=== PATIENT | male | born 1985 | race Caucasian/White ===

== ENCOUNTER 2020-11-10 20:07 | Emergency (ER) | payer OTHER, SELFPAY ==
[2020-11-10 20:14] VITALS: BP 151/87; PULSE 112; RESP 14; TEMP 37.1; O2SAT 96
--- NOTE | 2020-11-10 20:59 | ED.MALEGU ---
HPI - Male Genitourinary General Chief complaint: Urogenital-Male Stated complaint: blood in urine, clots Time Seen by Provider: 11/10/20 20:30 Source: patient Mode of arrival: ambulatory Limitations: no limitations History of Present Illness HPI Narrative: Patient is a 35-year-old male who presents complaining of hematuria, dysuria and urinary frequency x1 day. He reports having blood clots in urine earlier this evening, with darkening urine at this time. He denies flank pain, penile discharge, exposure to STD, testicle pain or swelling. He denies taking [id number] medications prior to arrival. MD Complaint: other Related Data Allergies Allergy/AdvReac Type Severity Reaction Status Date / Time No Known Allergies Allergy Verified 11/10/20 21:42 Review of Systems Review of Systems: Narrative: CONSTITUTIONAL: Denies fever, chills, or sweats. EYES: Denies visual changes, redness, or discharge. ENT: Denies rhinorrhea, congestion, sore throat, or otalgia. CARDIOVASCULAR: Denies chest pain, palpitations, or edema. RESPIRATORY: Denies cough or dyspnea. GASTROINTESTINAL: Denies abdominal pain, nausea, vomiting, or diarrhea. GENITOURINARY: Reports dysuria and hematuria. SKIN: Denies rash or itching. MUSCULOSKELETAL: Denies back pain, joint pain, or myalgia. NEUROLOGIC: Denies headache, numbness, dizziness, or weakness. PSYCHIATRIC: Denies anxiety or depression. [facility] Past Medical History Medical History Elevated cholesterol Rheumatoid arthritis Sleep apnea Surgical History Surgical History No significant past surgical history Family History Family History (Updated 11/10/20 @ 21:30 by JOSE Venegas) Other No significant family history Social History Social History (Updated 11/10/20 @ 21:31 by JOSE Venegas) Smoking status: Current every day smoker Tobacco type: cigarettes Alcohol intake: current Alcohol use details: Occasional Substance use: never Living arrangements: with family Occupation/Education: occupation Comments At the time of signature, I have reviewed and agree with nursing past medical, surgical, social, and family history unless otherwise noted. Please see nursing chart for further information. There is no relevant family history pertinent to the presenting complaint. Exam Narrative: Exam Narrative: GENERAL: Well-appearing, well-nourished, and in no acute distress. HEAD: Normocephalic, atraumatic. EYES: No redness or drainage. ENT: Mucous membranes pink and moist. CHEST: No respiratory distress. HEART: Regular rate and rhythm. EXTREMITIES: Normal range of motion. No edema. SKIN: Warm, dry, no rash. NEURO: No focal deficits. Alert and oriented x3. Gait steady. PSYCH: Normal affect. No signs of depression or anxiety. Course Vital Signs Vital signs: Vital Signs Temperature 37.1 C 11/10/20 20:14 Pulse Rate 112 H 11/10/20 20:14 Respiratory Rate 14 11/10/20 20:14 Blood Pressure 151/87 H 11/10/20 20:14 Pulse Oximetry 96 11/10/20 20:14 Temperature 37.1 C 11/10/20 20:14 Pulse Rate 112 H 11/10/20 20:14 Respiratory Rate 14 11/10/20 20:14 Blood Pressure 151/87 H 11/10/20 20:14 Pulse Oximetry 96 11/10/20 20:14 Reviewed. Patient has been instructed to follow-up with his PCP regarding his blood pressure. MDM - Male Genitourinary MDM Narrative Medical decision making narrative: Patient appears to have a UTI. He denies risk of STDs. Patient is able to urinate at this time without difficulty. IV fluids continued. Discussed with Dr. Palomo and patient to be discharged to home on antibiotics with outpatient follow-up with urology. Differential Diagnosis Differential diagnosis: Likely urinary tract infection Lab Data Labs: Lab Results 11/10/20 Range/Units 21:13 Urine Color Yellow (Yellow) Urine
[2020-11-10 21:28] LABS: Add Urine Microscopic? YES; Appearance Urine Cloudy (Clear); Bilirubin Urine Negative (Negative); Blood Urine 3+ (Negative); Color Urine Yellow (Yellow); Glucose Urine UA Negative (Negative); Ketones Urine Negative (Negative); Leukocyte Esterase Ur 2+ LEU/UL (Negative); Mucus Urine Moderate /lpf; Nitrate Urine Negative (Negative); Protein Urine 2+ mg/dL (Negative); RBC Urine >75 /hpf (0-2); Specific Grav Ur 1.029 (1.001-1.035); Squamous Epithelial Cell Urine Occasional /hpf (Few); Urobilinogen Urine Negative mg/dL (<2.0); WBC Clumps Urine Present /HPF; WBC Urine >75 /hpf
[2020-11-10] MEDS: SODIUM CHLORIDE 0.9% IV 1,000 ML 999 ML IV CONT (22:15)
== END 2020-11-10 23:28 | disposition home or self-care (01) ==
PROVIDERS: Emergency Provider Nurse Practitioner
DX: N39.0 Urinary tract infection, site not specified (principal); M06.9 Rheumatoid arthritis, unspecified; G47.30 Sleep apnea, unspecified; F17.210 Nicotine dependence, cigarettes, uncomplicated
CPT/HCPCS: 81001; 87077; 87086; 87088; 87186; 96360; 99283; J7030

== ENCOUNTER 2022-02-23 09:17 | Outpatient (CLI) | payer OTHER, SELFPAY ==
[2022-02-23 09:39] LABS: Hematocrit 43.5 % (42.0-52.0); Hemoglobin 14.6 g/dL (14.0-18.0); Mean Corpuscular HGB Conc 33.6 g/dl (32-36); Mean Corpuscular Volume 98.4 fl (80-100); Mean Platelet Volume 9.6 fl (7.4-10.4); Platelet Count Result 244 k/mm3 (150-375); Red Blood Count 4.42 M/mm3 (4.6-6.20); Red Cell Distribution Width 12.6 % (11.5-14.5); White Blood Count 6.4 K/mm3 (4.5-10.0)
[2022-02-23 09:48] LABS: Alanine Aminotransferase 71 U/L (4-50); Albumin Level 4.6 g/dL (3.5-5.1); Alkaline Phosphatase 42 U/L (38-126); Anion Gap 6 mmol/L (8-16); Aspartate Amino Transferase 35 U/L (17-59); Bilirubin,Total 0.6 mg/dL (0.2-1.3); Blood Urea Nitrogen 13 mg/dL (9-20); Calcium 8.9 mg/dL (8.4-10.2); Carbon Dioxide 24 mmol/L (22-30); Chloride 109 mmol/L (98-107); Cholesterol 231 mg/dL (0-200); Estimated Glomerular Filt Rate > 60; Glucose 99 mg/dL (65-110); HDL Direct 47 mg/dL; Potassium 4.1 mmol/L (3.4-5.0); Sodium 139 mmol/L (137-145); Triglycerides 146 mg/dL (<150)
[2022-02-23 09:59] LABS: LDL Cholesterol Direct 139 mg/dL
[2022-02-23 10:19] LABS: Thyroid Stimulating Hormone 0.832 uIU/mL (0.465-4.680)
[2022-02-23 10:54] LABS: Folic Acid 8.8 ng/mL (2.76->20)
[2022-02-23 10:57] LABS: Hepatitis B Surface Antigen Negative (Negative)
[2022-02-23 11:03] LABS: HAV RESULT Negative (Negative); Hepatitis B Core IgM Result Negative (Negative)
[2022-02-23 11:15] LABS: Hepatitis C Virus Antibody Negative (Negative)
[2022-02-23 12:22] LABS: Rapid Plasma Reagin Non-Reactive (NonReactive)
[2022-02-26 11:28] LABS: HIV 1 2 Ag Ab 4th Gen w Rflxs Non-reactive (Non-reactive)
[2022-02-28 14:27] LABS: Testosterone Free 105.8 pg/mL (35.0-155.0); Testosterone Total 470 ng/dL (250-1100)
[2022-03-01 21:10] LABS: HSV 1 IgM Screen Positive (Negative); HSV 2 IgM Screen Negative (Negative)
[2022-03-01 21:43] LABS: HSV 1 IgM Titer 1:20 (<1:20)
== END 2022-02-23 09:18 | disposition home or self-care (01) ==
PROVIDERS: PCP Physician Assistant; Visit Provider Physician Assistant
DX: R53.83 Other fatigue (principal); Z11.3 Encounter for screening for infections with a predominantly sexual mode of transmission; Z00.00 Encounter for general adult medical examination without abnormal findings
CPT/HCPCS: 36415; 80053; 80061; 80074; 82607; 82746; 84402; 84403; 84443; 85027; 86592; 86695; 86696; 87389; 87491; 87591

== ENCOUNTER 2022-03-09 07:04 | Outpatient (CLI) | payer OTHER, SELFPAY ==
--- NOTE | ~2022-03-09 | XR_ITS ---
EXAMINATION: XR barium swallow DATE: 03/09/2022 07:59 INDICATION: Dysphagia TECHNIQUE: The patient drank thick barium, gas-producing crystals, and thin barium. Fluoroscopy of th e hypopharynx and esophagus was performed. Fluoroscopy exposure time was 1.4 minutes. The DAP for thi s procedure was 9.4 Gycm2. COMPARISON: None. FINDINGS: There is no mass or stricture of the esophagus. Esophageal motility is normal. There is no hiatal hernia. There was no gastroesophageal reflux with provocative maneuvers. IMPRESSION: 1. Unremarkable esophagram. Reviewed, dictated and finalized at location A. IMPRESSION: 1. Unremarkable esophagram.
== END 2022-03-09 07:05 | disposition home or self-care (01) ==
PROVIDERS: PCP Physician Assistant; Visit Provider Physician Assistant
DX: R13.19 Other dysphagia (principal)
CPT/HCPCS: 74220

== ENCOUNTER 2022-03-20 13:29 | Outpatient (CLI) | payer OTHER, SELFPAY ==
[2022-03-20 13:59] LABS: Basophils Percent Auto 0.6 % (0.2-1.2); Eosinophils Absolute Auto 0.1 K/mm3 (0-0.3); Hematocrit 42.6 % (42.0-52.0); Hemoglobin 14.2 g/dL (14.0-18.0); Immature Granulocyte Absolute 0.05 K/mm3 (0.00-0.031); Immature Granulocyte Percent A 0.7 % (0-0.5); Lymphocytes Absolute Auto 2.14 K/mm3 (0.9-3.2); Lymphocytes Percent Auto 31.3 % (18.3-44.2); Mean Corpuscular HGB Conc 33.3 g/dl (32-36); Mean Corpuscular Hemoglobin 33.1 pg (26-34); Mean Corpuscular Volume 99.3 fl (80-100); Mean Platelet Volume 9.8 fl (7.4-10.4); Monocytes Absolute Auto 0.6 K/mm3 (0.1-0.6); Monocytes Percent Auto 8.8 % (2.6-8.5); Neutrophils Absolute Auto 3.9 K/mm3 (1.3-6.7); Neutrophils Percent Auto 56.6 % (45.5-73.1); Platelet Count Result 230 k/mm3 (150-375); Red Blood Count 4.29 M/mm3 (4.6-6.20); Red Cell Distribution Width 12.8 % (11.5-14.5); White Blood Count 6.8 K/mm3 (4.5-10.0)
[2022-03-20 14:17] LABS: Alanine Aminotransferase 45 U/L (6-50); Albumin Level 4.5 g/dL (3.5-5.1); Alkaline Phosphatase 46 U/L (38-126); Anion Gap 7 mmol/L (8-16); Aspartate Amino Transferase 27 U/L (17-59); Bilirubin,Total 0.2 mg/dL (0.2-1.3); Blood Urea Nitrogen 14 mg/dL (9-20); Carbon Dioxide 28 mmol/L (22-30); Chloride 107 mmol/L (98-107); Estimated Glomerular Filt Rate > 60; Glucose 97 mg/dL (65-110); Potassium 4.4 mmol/L (3.4-5.0); Sodium 142 mmol/L (137-145)
== END 2022-03-20 13:30 | disposition home or self-care (01) ==
LOC: ANHLAB 13:32
PROVIDERS: PCP Physician Assistant
DX: Z79.899 Other long term (current) drug therapy (principal)
CPT/HCPCS: 36415; 80053; 85025

== ENCOUNTER 2022-04-12 01:46 | Day surgery (SDC) | payer OTHER, SELFPAY ==
[2022-03-27 13:03] VITALS: BMI 33.8
--- NOTE | 2022-04-11 15:39 | WPDANESEPPF ---
Anes - Initial Pre Proc Eval Procedure: Operation Date: 04/12/22 08:45 Proposed Procedures p Esophagogastroduodenoscopy - Brent Luis MD Date/Time: 04/11/22 15:39 Surgeon: Brent Luis MD Pre Op Diagnosis: dysphagia Patient Data Age: 36 Gender: M Height: 1.73 m Weight: 101 kg Allergies Allergy/AdvReac Type Severity Reaction Status Date / Time No Known Allergies Allergy Verified 04/12/22 07:38 Home Medications Medication Instructions Recorded Confirmed Type folic acid 1 mg tablet 1 mg PO DAILY 02/22/22 04/12/22 History methotrexate sodium 2.5 mg tablet 25 mg PO WEEKLY 02/22/22 04/12/22 History Patient hx anesthesia problems: none Family hx anesthesia problems: none Results Review: All pre-operative results and documents have been reviewed as part of the pre-operative evaluation. [facility] Past Medical History Medical History (Updated 04/11/22 @ 15:39 by Paul Myers DO) Elevated cholesterol Hyperlipidemia Rheumatoid arthritis Sleep apnea Surgical History Surgical History No significant past surgical history Family History Family History Other No significant family history Social History Social History Smoking packs per day: 1 Smoking cigarettes per day: 20.0 Years smoked: 20 Smoking pack-years: 20.00 Smoking status: Current some day smoker Tobacco type: cigarettes Alcohol intake: current Alcohol use details: Occasional Substance use: never Substance use type: does not use Living arrangements: alone Spiritual care concerns: No Anes - Eval Final PreProcedure Day of Procedure 04/11/22 15:39 Patient weight: obese Heart: regular rate and rhythm Lungs: clear to auscultation Airway: Mallampati scale class III Neurological: alert and oriented Last oral intake: >/= 8 hours ASA classification: III Emergent: no Anesthetic plan: proceed Anesthesia type and monitoring: general GIVS and standard monitoring Results Review: All pre-operative results and documents have been reviewed as part of the pre-operative evaluation. Informed Consent: The patient's anesthetic plan and its attendant risks and benefits were discussed with the patient/family/POA. Questions were solicited and answers provided to the satisfaction of the patient/family/POA.
[2022-04-12 07:39] VITALS: BP 114/68; PULSE 49; RESP 18; TEMP 35.6; O2SAT 99
[2022-04-12] MEDS: LACTATED RINGERS 1,000 ML 150 ML IV CONT (07:42)
--- NOTE | 2022-04-12 07:55 | P.CONGI_ITS ---
Assessment and Plan Assessment and plan (1) Dysphagia: Code(s): R13.10 - Dysphagia, unspecified Status: Acute Assessment and Plan: Patient with difficulty swallowing solid foods for the last several years. S ymptoms are consistent with stoppage on narrowing. Plan is for EGD to assess more thoroughly. Possibly to dilate the esophagus. GE reflux is a consideration. Further recommendations will be given after endoscopy. (2) Rheumatoid arthritis: Code(s): M06.9 - Rheumatoid arthritis, unspecified Status: Acute GI Consult Note Consult date/time: 04/12/22 07:55 Reason for consult: dysphagia HPI: Brian Almeida is a 36 year old male presents for EGD because of complaints of difficulty swallowing. Patient reports over last several years that when eating solid foods it will catch in the mid substernal portion of the chest. It often takes several minutes to pass distally. Patient denies any heartburn. He has had no vomiting. No weight loss. His family history is noncontributory as he it was adopted. Past medical history is significant for rheumatoid arthritis for which she takes methotrexate and folic acid. Review of Systems Review of Systems: Review of systems noncontributory. [facility] Past Medical History Medical History (Updated 04/12/22 @ 07:57 by Brent Luis MD) Elevated cholesterol Hyperlipidemia Rheumatoid arthritis Sleep apnea Surgical History Surgical History No significant past surgical history Family History Family History Other No significant family history Social History Social History Smoking packs per day: 1 Smoking cigarettes per day: 20.0 Years smoked: 20 Smoking pack-years: 20.00 Smoking status: Current some day smoker Tobacco type: cigarettes Alcohol intake: current Alcohol use details: Occasional Substance use: never Substance use type: does not use Living arrangements: alone Spiritual care concerns: No Meds Home Medications and Allergies Home Medications Medication Instructions Recorded Confirmed Type folic acid 1 mg tablet 1 mg PO DAILY 02/22/22 04/12/22 History methotrexate sodium 2.5 mg tablet 25 mg PO WEEKLY 02/22/22 04/12/22 History Allergies Allergy/AdvReac Type Severity Reaction Status Date / Time No Known Allergies Allergy Verified 04/12/22 07:38 Vital Signs Vital Signs - 24 hr 04/12/22 07:39 Temperature 96.1 F L Pulse Rate 49 L Respiratory Rate 18 Blood Pressure 114/68 Pulse Oximetry 99 Oxygen Delivery Room Air Exam Narrative: Physical exam reveals patient to be alert. Vital signs stable. HEENT exam is unremarkable. Patient is anicteric. Lungs are clear to auscultation and percussion. Heart is without murmur or extra sounds. Abdominal exam bowel sounds present soft nontender with no organomegaly. Digital external rectal exam is normal.
[2022-04-12 09:12] VITALS: BP 99/57; PULSE 48; RESP 19; O2SAT 96
[2022-04-12 09:22] VITALS: BP 100/58; PULSE 48; RESP 19; O2SAT 97
[2022-04-12 09:32] VITALS: BP 105/62; PULSE 48; RESP 19; O2SAT 98
== END 2022-04-12 09:39 | disposition home or self-care (01) ==
PROVIDERS: PCP Physician Assistant; Visit Provider Internal Medicine Gastroenterology
PROC: 0DJ08ZZ Inspection of Upper Intestinal Tract, Via Natural or Artificial Opening Endoscopic (ICD-10-PCS; CPT 43235; principal; 2022-04-12 08:45)
DX: R13.10 Dysphagia, unspecified (principal); M06.9 Rheumatoid arthritis, unspecified; E78.5 Hyperlipidemia, unspecified; G47.30 Sleep apnea, unspecified; F17.210 Nicotine dependence, cigarettes, uncomplicated; E66.9 Obesity, unspecified; Z68.34 Body mass index [BMI] 34.0-34.9, adult
CPT/HCPCS: 43450; 43235; J2704; J7120

== ENCOUNTER 2022-06-12 12:05 | Outpatient (CLI) | payer OTHER, SELFPAY ==
[2022-06-12 12:29] LABS: Basophils Percent Auto 0.3 % (0.2-1.2); Eosinophils Absolute Auto 0.2 K/mm3 (0-0.3); Eosinophils Percent Auto 2.8 % (0-4.4); Hematocrit 41.9 % (42.0-52.0); Hemoglobin 14.2 g/dL (14.0-18.0); Immature Granulocyte Absolute 0.03 K/mm3 (0.00-0.031); Immature Granulocyte Percent A 0.4 % (0-0.5); Lymphocytes Absolute Auto 2.42 K/mm3 (0.9-3.2); Lymphocytes Percent Auto 32.4 % (18.3-44.2); Mean Corpuscular HGB Conc 33.9 g/dl (32-36); Mean Corpuscular Hemoglobin 33.1 pg (26-34); Mean Corpuscular Volume 97.7 fl (80-100); Mean Platelet Volume 9.5 fl (7.4-10.4); Monocytes Absolute Auto 0.5 K/mm3 (0.1-0.6); Monocytes Percent Auto 6.2 % (2.6-8.5); Neutrophils Absolute Auto 4.3 K/mm3 (1.3-6.7); Neutrophils Percent Auto 57.9 % (45.5-73.1); Platelet Count Result 239 k/mm3 (150-375); Red Blood Count 4.29 M/mm3 (4.6-6.20); Red Cell Distribution Width 12.7 % (11.5-14.5); White Blood Count 7.5 K/mm3 (4.5-10.0)
[2022-06-12 12:49] LABS: Alanine Aminotransferase 85 U/L (6-50); Albumin Level 4.6 g/dL (3.5-5.1); Alkaline Phosphatase 50 U/L (38-126); Anion Gap 11 mmol/L (8-16); Aspartate Amino Transferase 33 U/L (17-59); Bilirubin,Total 0.5 mg/dL (0.2-1.3); Blood Urea Nitrogen 17 mg/dL (9-20); Carbon Dioxide 23 mmol/L (22-30); Chloride 105 mmol/L (98-107); Estimated Glomerular Filt Rate > 60; Glucose 109 mg/dL (65-110); Potassium 4.2 mmol/L (3.4-5.0); Sodium 139 mmol/L (137-145)
== END 2022-06-12 12:06 | disposition home or self-care (01) ==
PROVIDERS: PCP Physician Assistant
DX: Z79.899 Other long term (current) drug therapy (principal)
CPT/HCPCS: 36415; 80053; 85025

== ENCOUNTER 2022-07-26 16:44 | Outpatient (CLI) | payer OTHER, SELFPAY ==
[2022-07-26 17:02] LABS: Basophils Percent Auto 0.3 % (0.2-1.2); Eosinophils Absolute Auto 0.1 K/mm3 (0-0.3); Eosinophils Percent Auto 1.4 % (0-4.4); Hematocrit 41.2 % (42.0-52.0); Hemoglobin 14.4 g/dL (14.0-18.0); Immature Granulocyte Absolute 0.04 K/mm3 (0.00-0.031); Immature Granulocyte Percent A 0.6 % (0-0.5); Lymphocytes Absolute Auto 2.07 K/mm3 (0.9-3.2); Mean Corpuscular Hemoglobin 33.2 pg (26-34); Mean Corpuscular Volume 94.9 fl (80-100); Mean Platelet Volume 9.6 fl (7.4-10.4); Monocytes Absolute Auto 0.6 K/mm3 (0.1-0.6); Monocytes Percent Auto 7.7 % (2.6-8.5); Neutrophils Absolute Auto 4.4 K/mm3 (1.3-6.7); Platelet Count Result 221 k/mm3 (150-375); Red Blood Count 4.34 M/mm3 (4.6-6.20); Red Cell Distribution Width 12.1 % (11.5-14.5); White Blood Count 7.2 K/mm3 (4.5-10.0)
[2022-07-26 17:12] LABS: Alanine Aminotransferase 71 U/L (6-50); Albumin Level 4.7 g/dL (3.5-5.1); Alkaline Phosphatase 41 U/L (38-126); Anion Gap 12 mmol/L (8-16); Aspartate Amino Transferase 30 U/L (17-59); Bilirubin,Total 0.3 mg/dL (0.2-1.3); Blood Urea Nitrogen 17 mg/dL (9-20); Calcium 9.3 mg/dL (8.4-10.2); Carbon Dioxide 26 mmol/L (22-30); Chloride 102 mmol/L (98-107); Estimated Glomerular Filt Rate > 60; Glucose 103 mg/dL (65-110); Potassium 3.9 mmol/L (3.4-5.0); Sodium 140 mmol/L (137-145)
== END 2022-07-26 16:45 | disposition home or self-care (01) ==
LOC: ANHLAB 16:48
PROVIDERS: PCP Physician Assistant
DX: Z79.899 Other long term (current) drug therapy (principal)
CPT/HCPCS: 36415; 80053; 85025

== ENCOUNTER 2022-10-08 14:06 | Outpatient (CLI) | payer OTHER, SELFPAY ==
[2022-10-08 15:07] LABS: Alanine Aminotransferase 114 U/L (6-50); Albumin Level 4.6 g/dL (3.5-5.1); Alkaline Phosphatase 40 U/L (38-126); Anion Gap 9 mmol/L (8-16); Aspartate Amino Transferase 49 U/L (17-59); Bilirubin,Total 0.5 mg/dL (0.2-1.3); Blood Urea Nitrogen 17 mg/dL (9-20); Calcium 8.9 mg/dL (8.4-10.2); Carbon Dioxide 26 mmol/L (22-30); Chloride 106 mmol/L (98-107); Estimated Glomerular Filt Rate > 60; Glucose 128 mg/dL (65-110); Potassium 3.7 mmol/L (3.4-5.0); Sodium 141 mmol/L (137-145)
== END 2022-10-08 14:07 | disposition home or self-care (01) ==
PROVIDERS: PCP Physician Assistant
DX: R74.8 Abnormal levels of other serum enzymes (principal); Z51.81 Encounter for therapeutic drug level monitoring; Z79.899 Other long term (current) drug therapy
CPT/HCPCS: 36415; 80053

== ENCOUNTER 2022-12-04 08:52 | Outpatient (CLI) | payer OTHER, SELFPAY ==
--- NOTE | 2022-12-24 11:32 | WPDSLEEPSTUD ---
Sleep Study Date of Study: 12/04/22 Ordering Provider: Tatum Ritter MD Interpreting Physician: Tatum Ritter MD Sleep Study Type: CPAP Titration Height: 1.75 m Weight: 120.202 kg Body Mass Index: 39.1 Neck Circumference (inches): 17.5 [place]: 16 Reason for Sleep Study Hypersomnolence Sleep History Brian Almeida is a 37-year-old man with a history of obstructive sleep apnea syndrome diagnosed in 2013, currently using the same device, auto PAP 16-20 cm. He can not sleep without it. He is actually afraid he will if he does not use it during sleep. He has had frightening episodes of waking, not breathing, perhaps having laryngospasm without using PAP.? He says that he was almost blacked out, had fading consciousness, jumped out of bed without being able to open his airway, finally able to gasp for breath. On another occasion, he woke during the night, was unable to move, was trying to grasp and pinch at his thighs to release himself from a feeling of paralysis. His normal bedtime is 10:00 p.m..? He can fall asleep immediately most nights.? If he has any difficulty falling asleep, he may watch [employer] on his telephone, wakes at 6:30 a.m. using an alarm.? He has not felt refreshed on waking for years.? He has dreams although he does not frequently have dream recall.? He has nocturia 3-4 nights out of the week.? He never has more than 1 episode of nocturia per night.? He drinks little caffeine, tea at lunch.? Very little soda.? He does not have any uncomfortable feelings in his legs before sleep and he does not kick at night. ? He has a deviated septum, can not breathe well at all out of the left side and has a large turbinates on the right side.?He has some problems with seasonal nasal irritation.? He has gained a significant amount of weight in the last year or more, now 259 lb. This is about 30 lb since Aug 2021. Now, he does not exercise. He has a 10 minute commute to work, does not have time to fall asleep on the short drive. He has had automatic driving, arriving at a destination not recalling the drive.? He does not have vivid dreams on waking of falling asleep, and in general does not feel paralyzed on waking or falling asleep. His normal work schedule is 7:00 a.m. to 5:30 p.m..? He comes home and takes a nap. Sometimes after an evening nap, he is too tired to do anything else. He says that he is always sleepy.? He always uses CPAP with naps. [facility] Past Medical History Medical History Elevated cholesterol Hyperlipidemia Rheumatoid arthritis Sleep apnea Surgical History Surgical History No significant past surgical history Family History Family History Other No significant family history Social History Social History (Updated 10/31/22 @ 17:57 by Tatum Ritter MD) Social History: States that he has not smoked since May 2022. See HPI. Smoking packs per day: 1 Smoking cigarettes per day: 20.0 Years smoked: 20 Smoking pack-years: 20.00 Smoking status: Former smoker Tobacco type: cigarettes Alcohol intake: current Alcohol use details: Occasional Substance use: never Substance use type: does not use Lack of Transportation: No Lack of Food: Sometimes True Current Housing: Decline to Answer Concerned About Future Housing: YES Difficulty Paying Gas/Electric Bills: Decline to Answer Difficulty Paying for Meds: YES Currently Unemployed: No Education: Associate Degree Difficulty w/ Childcare or Family Care: YES Living arrangements: alone Additional living arrangements comments: On this visit 10/31/2021, lives with fiivan?, expecting a baby. 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
[2022-12-24 12:32] VITALS: BMI 39.1
--- NOTE | 2023-06-04 14:06 | SLEEP ---
pt unable to complete call try back 30 d
== END 2022-12-05 07:04 | disposition home or self-care (01) ==
LOC: ANHCSM 08:55
PROVIDERS: PCP Physician Assistant; Visit Provider Internal Medicine Critical Care Medicine
DX: G47.33 Obstructive sleep apnea (adult) (pediatric) (principal); E78.5 Hyperlipidemia, unspecified; M06.9 Rheumatoid arthritis, unspecified; Z87.891 Personal history of nicotine dependence
CPT/HCPCS: 95811

== ENCOUNTER 2023-04-19 10:28 | Outpatient (CLI) | payer OTHER, SELFPAY ==
[2023-04-19 10:57] LABS: Basophils Percent Auto 0.4 % (0.2-1.2); Eosinophils Absolute Auto 0.2 K/mm3 (0-0.3); Eosinophils Percent Auto 2.7 % (0-4.4); Hematocrit 42.8 % (42.0-52.0); Hemoglobin 14.6 g/dL (14.0-18.0); Immature Granulocyte Absolute 0.04 K/mm3 (0.00-0.031); Immature Granulocyte Percent A 0.7 % (0-0.5); Lymphocytes Absolute Auto 1.78 K/mm3 (0.9-3.2); Lymphocytes Percent Auto 31.8 % (18.3-44.2); Mean Corpuscular HGB Conc 34.1 g/dl (32-36); Mean Corpuscular Volume 90.9 fl (80-100); Mean Platelet Volume 9.5 fl (7.4-10.4); Monocytes Absolute Auto 0.5 K/mm3 (0.1-0.6); Monocytes Percent Auto 9.7 % (2.6-8.5); Neutrophils Absolute Auto 3.1 K/mm3 (1.3-6.7); Neutrophils Percent Auto 54.7 % (45.5-73.1); Platelet Count Result 216 k/mm3 (150-375); Red Blood Count 4.71 M/mm3 (4.6-6.20); Red Cell Distribution Width 11.9 % (11.5-14.5); White Blood Count 5.6 K/mm3 (4.5-10.0)
[2023-04-19 11:10] LABS: Alanine Aminotransferase 189 U/L (6-50); Albumin Level 4.6 g/dL (3.5-5.1); Alkaline Phosphatase 41 U/L (38-126); Anion Gap 6 mmol/L (8-16); Aspartate Amino Transferase 92 U/L (17-59); Bilirubin,Total 0.7 mg/dL (0.2-1.3); Blood Urea Nitrogen 12 mg/dL (9-20); Calcium 9.3 mg/dL (8.4-10.2); Carbon Dioxide 30 mmol/L (22-30); Chloride 106 mmol/L (98-107); Estimated Glomerular Filt Rate > 60; Glucose 96 mg/dL (65-110); Potassium 4.6 mmol/L (3.4-5.0); Sodium 142 mmol/L (137-145)
== END 2023-04-19 10:29 | disposition home or self-care (01) ==
PROVIDERS: PCP Physician Assistant; Visit Provider Internal Medicine Rheumatology
DX: Z79.899 Other long term (current) drug therapy (principal)
CPT/HCPCS: 36415; 80053; 85025

== ENCOUNTER 2023-09-10 14:41 | Outpatient (CLI) | payer OTHER, SELFPAY ==
--- NOTE | ~2023-09-10 | XR_ITS ---
Left Knee Technique: AP, lateral, and sunrise views were obtained. Clinical History: Pain Findings: No fracture or dislocation is seen. Osseous alignment is anatomic. Joint spaces are preserv ed without degenerative or erosive change. Soft tissues are unremarkable. No joint effusion is seen. Impression: Unremarkable left knee radiographs. Reviewed, dictated and finalized at location . ESTATE LEASING MANAGER Impression: Unremarkable left knee radiographs.
== END 2023-09-10 14:42 | disposition home or self-care (01) ==
LOC: ANHIMG 14:49
PROVIDERS: PCP Physician Assistant; Visit Provider Orthopaedic Surgery
DX: M25.562 Pain in left knee (principal)
CPT/HCPCS: 73564

== ENCOUNTER 2023-10-25 16:24 | Outpatient (CLI) | payer OTHER, SELFPAY ==
--- NOTE | ~2023-10-25 | MR_ITS ---
EXAMINATION: MR knee LT wo con DATE: 10/25/2023 17:25 INDICATION: Medial meniscal tear post injury while squatting with palpable and audible tear present ing with one month of medial left knee pain. TECHNIQUE: Magnetic resonance imaging (MRI) of the left knee was performed without intravenous contra st. Sequences included coronal PD-weighted FSE, coronal PD-weighted FS FSE, sagittal T2-weighted FSE , sagittal PD-weighted FS FSE and axial PD weighted fat saturated FSE. COMPARISON: None. FINDINGS: Medial compartment: There is a longitudinal horizontal tear extending to the inferior articular surface of the posterior horn of the medial meniscus. Articular cartilage is normal. Lateral compartment: Lateral meniscus is normal. Articular cartilage is normal. Patellofemoral compartment: There is a deep chondral fissure involving greater than 50% the cartilage thickness but without under lying degenerative subchondral changes at the medial patellar facet. Remaining cartilage in the rogers lofemoral compartment is normal. Ligaments and tendons: Anterior and posterior cruciate ligaments are normal. The medial collateral ligament and fibular meri ateral ligament complex are normal. The extensor mechanism is normal. The visualized medial and later al hamstring tendons as well as the iliotibial band are normal. Fluid: Physiologic amount of fluid in the joint space. No loose osteochondral bodies identified. Osseous/other: Normal marrow signal. No fracture or pathologic marrow replacing process. IMPRESSION: 1. Large horizontal tear at the posterior horn of the medial meniscus. 2. Deep chondral fissuring at the medial patellar facet. Remaining articular cartilage at the left kn ee is normal. Reviewed, dictated and finalized at location A. EAR ENGINEER IMPRESSION: 1. Large horizontal tear at the posterior horn of the medial meniscus. 2. Deep chondral fissuring at the medial patellar facet. Remaining articular ca rtilage at the left knee is normal.
== END 2023-10-25 16:25 | disposition home or self-care (01) ==
PROVIDERS: PCP Physician Assistant; Visit Provider Orthopaedic Surgery
DX: S83.242A Other tear of medial meniscus, current injury, left knee, initial encounter (principal); M22.42 Chondromalacia patellae, left knee; X58.XXXA Exposure to other specified factors, initial encounter
CPT/HCPCS: 73721

== ENCOUNTER 2023-11-19 12:49 | Outpatient (CLI) | payer OTHER, SELFPAY ==
[2023-11-19 13:27] LABS: Partial Thromboplastin Time 25.6 SECONDS (22.3-36.8); Prothrombin Time 13.5 Seconds (11.1-14.7)
[2023-11-19 13:31] LABS: Anion Gap 12 mmol/L (8-16); Blood Urea Nitrogen 19 mg/dL (9-20); Calcium 9.6 mg/dL (8.4-10.2); Carbon Dioxide 24 mmol/L (22-30); Chloride 105 mmol/L (98-107); Estimated Glomerular Filt Rate > 60; Glucose 116 mg/dL (65-110); Potassium 3.9 mmol/L (3.4-5.0); Sodium 141 mmol/L (137-145)
== END 2023-11-19 12:50 | disposition home or self-care (01) ==
LOC: ANHLAB 12:51
PROVIDERS: PCP Physician Assistant; Visit Provider Anesthesiology
DX: Z01.818 Encounter for other preprocedural examination (principal); K76.0 Fatty (change of) liver, not elsewhere classified
CPT/HCPCS: 36415; 80048; 85610; 85730

== ENCOUNTER 2023-11-28 00:52 | Day surgery (SDC) | payer OTHER, SELFPAY ==
[2023-11-19 10:12] VITALS: BMI 40.6
--- NOTE | 2023-11-19 10:19 | PC.NURSE ---
Report to the Outpatient Waiting Room, entrance under the green pavilion located off [facility], at time 11:30 on date 11/28/23. Planned Procedure Time: 1:30. Time changes happen often and if your time is changed the preop area will call you the afternoon before. - You and your visitor will be asked to self-screen and do not enter if you have any COVID symptoms. - A mask is optional within the hospital at this time. Patients may have clear liquids (water, carbonated beverages, clear teas, apple juice) until 3 hours prior to surgery (10:30) with a maximum of 20 ounces. - No food from midnight until time of surgery Take the following medications with a SIP of water the morning of surgery: NONE DO NOT STOP ANY OF YOUR OTHER PRESCRIPTION MEDICATIONS PRIOR TO SURGERY ?EXCEPT THE FOLLOWING Medications to discontinue per physician: ASPIRIN Date to take last dose: 11/20/23 Please no make-up, nail albanian, hairspray, perfume, deodorant, or body powder the day of surgery. No jewelry (including any body piercings) or valuables the day of surgery, leave them at home. Please take a shower or bath the night before, or the morning of, surgery with an antibacterial soap. Wear comfortable, loose fitting clothing. - Jewelry must be removed prior to entering the operating room. Rings and piercings that are not removed may be cut off. - The hospital will not accept responsibility for valuables. - Please leave all valuables, including medications, at home the day of surgery. If you are going home after surgery, a licensed courier delivery driver must drive you home. - NO public transportation without another adult if you receive anesthesia. - We recommend that an adult stay with you for 24 hours following discharge. - We also recommend that you do not drive, make important decision, drink alcoholic beverages, or take any drugs that were not prescribed by your health care provider for at least 24 hours after your discharge time. Follow any additional instructions given to you from your surgeon. If you or anyone in your household have experienced Covid symptoms in the past week, please notify your surgeon or the nurse liaison at the phone number below for possible testing. Telephone instructions given to PT - JOYCE ZEPEDA and asked if any additional questions and then verbalized understanding. Patient advised to call surgeon office or pre surgery nurse liaison [phone] if any additional questions.
[2023-11-28] VITALS (8 sets, daily range): BP systolic 104–129; BP diastolic 57–76; PULSE 60–72; RESP 16–18; TEMP 36.3–36.8; O2SAT 92–98
--- NOTE | 2023-11-28 07:16 | WPDHPUPDATE1 ---
History and Physical Update Update Date/Time: 11/28/23 07:16 History and Physical has been reviewed, including an updated exam of the patient. There are NO changes in the patient's condition. Risks, benefits, and alternatives have been discussed and questions answered. Patient agrees to proceed with procedure.
[2023-11-28] MEDS: ACETAMINOPHEN 500 MG TABLET 1000 MG PO (11:25)
[2023-11-28] MEDS: LACTATED RINGERS 1,000 ML 30 ML IV CONT (11:40)
--- NOTE | 2023-11-28 11:54 | WPDANESEPPF ---
Anes - Initial Pre Proc Eval Procedure: Operation Date: 11/28/23 13:30 Proposed Procedures p Left Knee Arthroscopic Partial Medial Meniscectomy - Aj Hernadnez MD Date/Time: 11/28/23 11:54 Surgeon: Aj Hernandez MD Pre Op Diagnosis: left knee medial meniscal tear Patient Data Age: 38 Gender: M Height: 1.75 m Weight: 124.75 kg Allergies Allergy/AdvReac Type Severity Reaction Status Date / Time No Known Allergies Allergy Verified 11/28/23 11:50 Home Medications Medication Instructions Recorded Confirmed Type hydroxychloroquine 200 mg tablet 1 tablet PO BID 10/31/22 11/28/23 History aspirin 81 mg chewable tablet 81 mg PO DAILY 11/19/23 11/28/23 History triamcinolone acetonide 0.1 % 1 applic topical BID 11/19/23 11/28/23 History topical ointment hydrocodone 5 mg-acetaminophen 325 1 - 2 tablet PO Q4-6H PRN pain #30 11/28/23 Rx mg tablet tabs Patient hx anesthesia problems: none Family hx anesthesia problems: none Results Review: All pre-operative results and documents have been reviewed as part of the pre-operative evaluation. [facility] Past Medical History Medical History Elevated cholesterol Hyperlipidemia Rheumatoid arthritis Sleep apnea Surgical History Surgical History No significant past surgical history Family History Family History Other No significant family history Social History Social History Social History: States that he has not smoked since May 2022. See HPI. Smoking packs per day: 1 Smoking cigarettes per day: 20.0 Years smoked: 6 Smoking pack-years: 6.00 Smoking status: Former smoker Tobacco type: cigarettes Smoking end date: 10/28/22 Alcohol intake: never Alcohol use details: Occasional Substance use: never Substance use type: does not use Do You Feel Safe in your Home?: Yes Lack of Transportation: No Lack of Food: Never True Current Housing: Decline to Answer Concerned About Future Housing: Decline to Answer Difficulty Paying Gas/Electric Bills: Decline to Answer Difficulty Paying for Meds: Decline to Answer Currently Unemployed: Decline to Answer Education: Associate Degree Difficulty w/ Childcare or Family Care: Decline to Answer Living arrangements: with family Additional living arrangements comments: On this visit 10/31/2021, lives with abigail?, expecting a baby. 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 Informed Consent: The patient's anesthetic plan and its attendant risks and benefits were discussed with the patient/family/POA. Questions were solicited and answers provided to the satisfaction of the patient/family/POA.
[2023-11-28] MEDS: KETOROLAC 15 MG/ML VIAL (*BKC) IV PUSH (12:02)
[2023-11-28] MEDS: ceFAZolin 3 GM/D5W 100 ML 100 ML IVPB (12:27)
[2023-11-28] MEDS: BUPIVACAINE/EPINEPHRINE 0.5% 10 ML VIAL 30 ML INFILTRATE (12:55)
--- NOTE | 2023-11-28 13:48 | P.OP_ITS ---
Procedure Note - Detailed Date of Procedure 11/28/23 Pre-op Diagnosis left knee medial meniscal tear Post-op Diagnosis Same Procedure Performed Arthroscopic partial medial meniscectomy, left knee. Surgeon Aj Hernandez MD Anesthesia General Findings Very significant. Beak tear of the posterior medial corner of the medial meniscus. The remainder of the knee was normal other than a central area of deep fissuring on the patella. Medial femur chondromalacia grade 0, medial tibia grade 0. Lateral femur cho ndromalacia grade 0, lateral tibia grade 0. Patellar grade 1/2, trochlea grade 0. Description of Procedure The patient was identified and the surgical site confirmed and signed in the preoperative holding area. Antibiotics were started per protocol, and the patient was brought to the operative room and transferred to the OR table. A general anesthetic was administered. Supine position with the operative lower extremity position in the leg crum after placement of a well padded tourniquet. The leg support was lowered and the contralateral limb was supported with a soft bolster. The knee was prepped and draped in the usual sterile fashion. A time-out was performed. The portal sites were marked and infiltrated with 0.5% Marcaine 20 mL. The limb was exsanguinated and the tourniquet inflated to 300 mL Hg. Standard inferolateral and inferomedial portals were established. Inflow was obtained with the saline pump. The camera was introduced. Diagnostic inspection of the joint was accomplished. The meniscus was debrided with the arthroscopic shaver and punches until stable. The arthroscopic instruments were removed. The tourniquet released and wounds closed with subcutaneous 4-0 Monocryl absorbable suture. Steri strips and a sterile dressing were applied. A light elastic wrap was placed. The patient was extubated and brought to the recovery room in stable condition. Estimated Blood Loss 5 Tourniquet Time Total Tourniquet Time: 14 Drains No Complications No immediate complications Condition Stable Disposition PACU [facility] Billing Surgery - Charge Forward: Surgery Billing
[2023-11-28] MEDS: oxyCODONE HCL (*CRX) 5 MG TAB IR PO (14:30)
== END 2023-11-28 15:25 | disposition home or self-care (01) ==
PROVIDERS: PCP Physician Assistant; Visit Provider Orthopaedic Surgery
PROC: (CPT 29870; principal; 2023-11-28 13:30)
DX: S83.242A Other tear of medial meniscus, current injury, left knee, initial encounter (principal); E78.5 Hyperlipidemia, unspecified; G47.30 Sleep apnea, unspecified; M06.9 Rheumatoid arthritis, unspecified; E66.01 Morbid (severe) obesity due to excess calories; Z68.41 Body mass index [BMI] 40.0-44.9, adult; Z79.82 Long term (current) use of aspirin; Z79.891 Long term (current) use of opiate analgesic; Z87.891 Personal history of nicotine dependence; X50.0XXA Overexertion from strenuous movement or load, initial encounter
CPT/HCPCS: 29881; A9270; J0690; J1100; J1885; J2250; J2405; J2704; J3010; J7120

== ENCOUNTER 2024-01-08 08:00 | Outpatient (RCR) | payer OTHER, SELFPAY ==
--- NOTE | 2023-12-04 09:07 | PTOPEVAL1 ---
Assessment and note entered by Gerald Garcia Evaluation Information Assessment Status Evaluation Diagnosis s/p left knee arthroscopy, left knee pain Onset 11/28/23 Subjective Information Pt. reports he underwent knee scope on 11/28/23. He reports that he was very active prior to the past 3 months, when he injured the knee. He states that he enjoyed hiking and being outdoors. He reports that he is not working currently. He states that he works in the [employer] at [facility] [employer]. He states that he stands with a lead vest on a good portion of the day. he reports that most pain is noted with weight bearing and exercise. He states that his goal for therapy is to return to walking normal and have little to no pain. Reported Pain Level Pain Score 3: Self Report Assessment PT Clinical Summary Pt. is a 38 year old male 5 days post left knee arthroscopy. He presents with pain at the left knee, impaired gait, edema, impaired ROM and impaired strength. continued skilled PT is indicated in order to improve these areas to allow the pt. to return to work related duties and return to normal IADL performance. Plan of Care Interventions Electrical Stimulation,Gait Training,Hot Pack/Cold Pack,Intermittent Compression,Manual Therapy, Neuro Re-education,Patient/Caregiver Educati, Therapeutic Activities,Therapeutic Exercise PT Services Indicated Yes Treatment Frequency and 2x/week x 10 visits Duration These treatments will address the objective and functional deficits as defined above. The patient will be advanced safely and appropriately in order for the patient to progress towards his/her prior level of function. Additional exercises will be introduced and as well as a comprehensive home exercise program upon discharge, if needed, ?to ensure carryover of functional gains achieved in the clinic. This treatment plan has been reviewed and agreement upon by the patient.
--- NOTE | 2023-12-04 09:09 | OPREHPOC ---
Outpatient Therapy Plan of Care This is a Multidisciplinary Plan of Care that may contain components documented by all disciplines (PT, OT, and ST.) PT Problem 1 PT Problem #1 Knowledge Deficit PT Goal 1 Goal Independent with a HEP addressing ROM religious and l.e. strength. Target Visit 2 PT Problem 2 PT Problem #2 Edema PT Goal 1 Goal Reduce knee joint line girth measurements at the left knee to 41cm or less. Target Visit 10 PT Problem 3 PT Problem #3 Impaired Gait PT Goal 1 Goal Pt. will complete the 2 minute walk test over a distance of 500' demonstrating equal right and left stance time. Target Visit 10 PT Problem 4 PT Problem #4 Impaired Range of Motion PT Goal 1 Goal Pt. will achieve 0-125 degrees left knee active ROM PT Problem 5 PT Problem #5 Impaired Functional Mobil PT Goal 1 Goal Pt. will present with less than 25% limitation on the LEFS indicating significant overall functional improvement. Target Visit 10
--- NOTE | 2023-12-12 11:53 | PCPTNOTE ---
Pt. called and cancelled today's treatment session due to not feeling well.
--- NOTE | 2023-12-17 08:24 | PCPTNOTE ---
Pt NS appt this AM due returning to work and forgot to call with new schedule. He was R/S on tomorrow's schedule.
--- NOTE | 2023-12-24 08:52 | PCPTNOTE ---
Pt NS appt because he forgot to call and cancel yesterday.
--- NOTE | 2023-12-26 08:25 | PCPTNOTE ---
Pt cancelled due to work.
--- NOTE | 2023-12-31 13:52 | PCPTNOTE ---
Pts appt was canceled due to providers absence.
--- NOTE | 2024-01-08 08:43 | PTOPDC ---
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 He called/canceled 2 and did not show for 2 appointments. Compared to the initial evaluation: pain has decreased and reports pain only with kneeling onto knee 4/10; ROM is WNL and without pain; decreased edema over knee--circumferential measurement at mid joint line is the same R/L; 2 minute walking time increased by 75'; increase strength R hip and knee; functional LE assessment rating improved from 66 to 23% limitation; has returned to all of his home and work tasks; education completed for HEP. The goals were achieved. Discharge PT services. He is to continue with his HEP. Plan of Care PT Services Indicated No
== END 2024-01-08 09:21 | disposition home or self-care (01) ==
LOC: ANHPT 08:00
PROVIDERS: PCP Physician Assistant; Visit Provider Orthopaedic Surgery
DX: Z48.89 Encounter for other specified surgical aftercare (principal)
CPT/HCPCS: 97016; 97110; 97112; 97140; 97161; 97530; 99199

== ENCOUNTER 2024-03-10 14:57 | Outpatient (CLI) | payer OTHER, SELFPAY ==
--- NOTE | ~2024-03-10 | US_ITS ---
EXAMINATION: US thyroid DATE: 03/10/2024 15:33 INDICATION: Localized swelling, mass and lump, neck. TECHNIQUE: Multiple ultrasound images of the thyroid were obtained. COMPARISON: None. FINDINGS: The right thyroid lobe measures 5.1 x 1.4 x 0.7 cm. The left thyroid lobe measures 4.0 x 1.3 x 1.7 c m. There is normal echotexture and echogenicity throughout the thyroid gland. No discrete nodules id entified. Normal vascular flow is present. IMPRESSION: 1. Normal thyroid. Reviewed, dictated and finalized at location A. IMPRESSION: 1. Normal thyroid.
== END 2024-03-10 14:58 | disposition home or self-care (01) ==
LOC: ANHIMG 14:58
PROVIDERS: PCP Physician Assistant; Visit Provider Physician Assistant
DX: R22.1 Localized swelling, mass and lump, neck (principal)
CPT/HCPCS: 76536

== ENCOUNTER 2024-04-01 14:02 | Outpatient (CLI) | payer OTHER, SELFPAY ==
--- NOTE | ~2024-04-01 | XR_ITS ---
XR knee LT min 4V Ordering provider: Aj Hernandez MD History: . Other tear of medial meniscus,current injury SURGERY 2 MO. . Comparison: September 10, 2023 FINDINGS: BONES: No acute fracture or dislocation. JOINT SPACES: Normal. SOFT TISSUES: Normal. IMPRESSION: No acute osseous abnormality left knee. Consider MRI knee if there is concern for soft tissue internal derangement. Reviewed, dictated and finalized at location A.
== END 2024-04-01 14:03 | disposition home or self-care (01) ==
PROVIDERS: PCP Physician Assistant; Visit Provider Orthopaedic Surgery
DX: S83.242A Other tear of medial meniscus, current injury, left knee, initial encounter (principal)
CPT/HCPCS: 73564

== ENCOUNTER 2024-05-04 08:57 | Emergency (ER) | payer OTHER, SELFPAY ==
[2024-05-04 09:03] VITALS: BP 130/73; PULSE 79; RESP 16; TEMP 36.6; O2SAT 98
--- NOTE | 2024-05-04 09:08 | ED.URI ---
HPI - URI/Sore Throat General Chief Complaint: Upper Respiratory Infection Stated Complaint: cough Time Seen by Provider: 05/04/24 09:08 Source: patient Mode of arrival: ambulatory Limitations: no limitations History of Present Illness HPI Narrative: 39-year-old male presents with complaint of nasal congestion, cough for about 1 week. Patient reports he has felt fine and has not needed to take any [id number] medications to treat his symptoms. Afebrile. No chest pain or shortness of breath. Patient states his son is no sick with cough and fever. Wants to see what he has that he may have possibly given to his son. All Systems reviewed and negative except as noted above. Related Data Home Medications Medication Instructions Recorded Confirmed aspirin 81 mg chewable tablet 81 mg PO DAILY 11/19/23 05/04/24 Allergies Allergy/AdvReac Type Severity Reaction Status Date / Time No Known Allergies Allergy Verified 05/04/24 09:13 Review of Systems Review of Systems: CONSTITUTIONAL: Denies fever, chills, or sweats. EYES: Denies visual changes, redness, or discharge. ENT: reports rhinorrhea, congestion. Denies sore throat, or otalgia. CARDIOVASCULAR: Denies chest pain, palpitations, or edema. RESPIRATORY: reports cough . Denies dyspnea. GASTROINTESTINAL: Denies abdominal pain, nausea, vomiting, or diarrhea. GENITOURINARY: Denies dysuria or hematuria. SKIN: Denies rash or itching. MUSCULOSKELETAL: Denies back pain, joint pain, or myalgia. NEUROLOGIC: Denies headache, numbness, or weakness. PSYCHIATRIC: Denies anxiety or depression. All other systems reviewed are negative, except as documented in HPI. [facility] Past Medical History Medical History Elevated cholesterol Hyperlipidemia Rheumatoid arthritis Sleep apnea Surgical History Surgical History No significant past surgical history Family History Family History Other No significant family history Social History Social History Social History: States that he has not smoked since May 2022. See HPI. Smoking packs per day: 1 Smoking cigarettes per day: 20.0 Years smoked: 6 Smoking pack-years: 6.00 Smoking status: Former smoker Tobacco type: cigarettes Smoking end date: 10/28/22 Alcohol intake: never Alcohol use details: Occasional Substance use: never Substance use type: does not use Do You Feel Safe in your Home?: Yes Lack of Transportation: No Lack of Food: Never True Current Housing: Decline to Answer Concerned About Future Housing: Decline to Answer Difficulty Paying Gas/Electric Bills: Decline to Answer Difficulty Paying for Meds: Decline to Answer Currently Unemployed: Decline to Answer Education: Associate Degree Difficulty w/ Childcare or Family Care: Decline to Answer Living arrangements: with family Additional living arrangements comments: On this visit 10/31/2021, lives with fianc?, expecting a baby. 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 There is no relevant family history pertinent to the presenting complaint. Exam Narrative: GENERAL: This is a well-nourished, well-developed patient, in no apparent distress. HEAD: normocephalic, atraumatic. EYES: PERRL. Sclera clear/white. Vision is grossly intact. EARS: External ears normal, auditory canals clear and without drainage, TMs normal without perforation. Hearing grossly intact. NOSE: External nose normal with clear nasal drainage, nares without redness, THROAT: Mucous membranes moist, pos
[2024-05-04 09:39] LABS: EDINFLUASCREEN Negative; EDINFLUBSCREEN Negative
== END 2024-05-04 09:36 | disposition home or self-care (01) ==
PROVIDERS: Emergency Provider Nurse Practitioner Family; PCP Physician Assistant
DX: J06.9 Acute upper respiratory infection, unspecified (principal); Z20.822 Contact with and (suspected) exposure to COVID-19; Z87.891 Personal history of nicotine dependence; E78.00 Pure hypercholesterolemia, unspecified; E78.5 Hyperlipidemia, unspecified; M06.9 Rheumatoid arthritis, unspecified
CPT/HCPCS: 87426; 87804; 99213; G0463

== ENCOUNTER 2024-10-07 11:58 | Outpatient (CLI) | payer OTHER, SELFPAY ==
[2024-10-07 13:12] LABS: Basophils Percent Auto 0.3 % (0.2-1.2); Eosinophils Absolute Auto 0.1 K/mm3 (0-0.3); Eosinophils Percent Auto 2.2 % (0-4.4); Hematocrit 43.4 % (42.0-52.0); Hemoglobin 14.6 g/dL (14.0-18.0); Immature Granulocyte Absolute 0.03 K/mm3 (0.00-0.031); Immature Granulocyte Percent A 0.5 % (0-0.5); Lymphocytes Absolute Auto 2.35 K/mm3 (0.9-3.2); Lymphocytes Percent Auto 39.4 % (18.3-44.2); Mean Corpuscular HGB Conc 33.6 g/dl (32-36); Mean Corpuscular Hemoglobin 29.1 pg (26-34); Mean Corpuscular Volume 86.6 fl (80-100); Mean Platelet Volume 10.1 fl (7.4-10.4); Monocytes Absolute Auto 0.4 K/mm3 (0.1-0.6); Monocytes Percent Auto 7.4 % (2.6-8.5); Neutrophils Percent Auto 50.2 % (45.5-73.1); Platelet Count Result 206 k/mm3 (150-375); Red Blood Count 5.01 M/mm3 (4.6-6.20); Red Cell Distribution Width 12.7 % (11.5-14.5)
[2024-10-07 13:42] LABS: Alanine Aminotransferase 66 U/L (6-50); Albumin Level 4.6 g/dL (3.5-5.1); Alkaline Phosphatase 51 U/L (38-126); Anion Gap 7 mmol/L (4-12); Aspartate Amino Transferase 40 U/L (17-59); Bilirubin,Total 0.8 mg/dL (0.2-1.3); Blood Urea Nitrogen 14 mg/dL (9-20); Calcium 9.6 mg/dL (8.4-10.2); Carbon Dioxide 25 mmol/L (22-30); Chloride 108 mmol/L (98-107); Cholesterol 161 mg/dL (0-200); Estimated Glomerular Filt Rate > 60; Glucose 82 mg/dL (65-110); HDL Direct 41 mg/dL; LDL Cholesterol Direct 76 mg/dL; Potassium 4.1 mmol/L (3.4-5.0); Sodium 140 mmol/L (137-145); Triglycerides 223 mg/dL (<150)
== END 2024-10-07 11:59 | disposition home or self-care (01) ==
LOC: ANHLAB 12:00
PROVIDERS: PCP Internal Medicine; Visit Provider Internal Medicine
DX: Z00.00 Encounter for general adult medical examination without abnormal findings (principal); E78.5 Hyperlipidemia, unspecified; Z13.29 Encounter for screening for other suspected endocrine disorder
CPT/HCPCS: 36415; 80053; 80061; 84443; 85025

== ENCOUNTER 2025-06-01 19:35 | Emergency (ER) | payer OTHER, SELFPAY ==
[2025-06-01 19:42] VITALS: BP 141/80; PULSE 89; RESP 16; TEMP 36.6; O2SAT 98
--- NOTE | 2025-06-01 19:58 | ED.GENADULT ---
HPI - General Adult General Chief complaint: Dental/Oral Stated complaint: mouth hurting Source: patient Mode of arrival: ambulatory Limitations: no limitations History of Present Illness HPI narrative: Patient presents for evaluation of painful lesions to his gums over the last 3 days. He denies any recent inhaler use. He is not diabetic. Denies pain in any of his teeth, fever, chills, sore throat. He has been using a mouthwash without much improvement. He has never had similar symptoms in the past. He states he had positive HSV testing in the past but is not sure whether it was serum antibody testing or PCR testing of lesions. Related Data Home Medications ?Medication ?Instructions ?Recorded ?Confirmed ?Last Taken ?Type aspirin 81 mg chewable tablet 81 mg PO DAILY 11/19/23 09/14/24 11/21/23 History rosuvastatin 5 mg tablet (Crestor) 5 mg PO DAILY 08/28/24 09/14/24 Unknown History Allergies Allergy/AdvReac Type Severity Reaction Status Date / Time No Known Allergies Allergy Verified 06/01/25 19:38 Review of Systems Review of Systems: CONSTITUTIONAL: Denies fever, chills, or sweats. EYES: Denies visual changes, redness, or discharge. ENT: Reports painful lesions to the gums. Denies pain in the teeth. Denies rhinorrhea, congestion, sore throat, or otalgia. CARDIOVASCULAR: Denies chest pain, palpitations, or edema. RESPIRATORY: Denies cough or dyspnea. GASTROINTESTINAL: Denies abdominal pain, nausea, vomiting, or diarrhea. GENITOURINARY: Denies dysuria or hematuria. SKIN: Denies rash or itching. MUSCULOSKELETAL: Denies back pain, joint pain, or myalgia. NEUROLOGIC: Denies headache, numbness, dizziness, or weakness. PSYCHIATRIC: Denies anxiety or depression. [facility] Past Medical History Medical History Internal derangement of left knee involving posterior horn of lateral meniscus Hyperlipidemia Rheumatoid arthritis Elevated cholesterol Sleep apnea Surgical History Surgical History No significant past surgical history Family History Family History Other No significant family history Social History Social History Social History: States that he has not smoked since May 2022. See HPI. Smoking packs per day: 1 Smoking cigarettes per day: 20.0 Years smoked: 6 Smoking pack-years: 6.00 Smoking status: Former smoker Tobacco type: cigarettes Smoking end date: 10/28/22 Alcohol intake: never Alcohol use details: Occasional Substance use: never Substance use type: does not use Do You Feel Safe in your Home?: Yes Lack of Transportation: No Lack of Food: Never True Current Housing: Decline to Answer Concerned About Future Housing: Decline to Answer Difficulty Paying Gas/Electric Bills: Decline to Answer Difficulty Paying for Meds: Decline to Answer Currently Unemployed: Decline to Answer Education: Associate Degree Difficulty w/ Childcare or Family Care: Decline to Answer Living arrangements: with family Additional living arrangements comments: On this visit 10/31/2021, lives with fianc?, expecting a baby. 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 HEAD: Normocephalic, atraumatic. EYES: PERRLA and EOMI. ENT: Nares clear, no rhinorrhea or epistaxis. Mucous membranes moist. There are some superficial excoriations to the inner aspect of the lower gums without discrete ulcerative lesions. Bilateral TMs pearly brush nonbulging NECK: Supple. No adenopathy or masses. No carotid bruits or JVD CHEST: Clear to auscultation. No respiratory distress. No wheezes rales or rhonchi HEART: Regular rate and rhythm. No murmur heard. Normal peripheral pulses. ABDOMEN: Soft, nontender, nondistended, normal active bowel sounds. EXTREMITIES: Normal range of motion. No edema. SKIN: Warm, dry, no rash. NEURO: No focal deficits. Alert and oriented x3. PSYCH: Normal mood and affect. Course Course Emergency Course: This is a 40-year-old male who presented for evaluation painful lesions to the gums for the past few days. There are no discrete ulcerative lesions. I did advise that serum HSV testing would not necessarily mean thick current areas are active herpes lesions. I did offer to do PCR testing. He declined. I also offered to treat him empirically for HSV, which he also declined. I recommended chlorhexidine and or viscous lidocaine. He declined both. He states he would like antibiotics. He does not appear to have any dental infection warranting oral antibiotics. He seemed disappointed with this response. Once again I offered him other therapies, which he declined. I also offered to give him oral abx in the event that his symptoms progress. He declined. He was advised to follow-up with dentist and primary care provider. He should go to the ER for worsening symptoms. Pt in agreement with plan of care. Level of Care: Express Care Visit Vital Signs Vital signs: Vital Signs Temperature 36.6 C 06/01/25 19:42 Pulse Rate 89 06/01/25 19:42 Respiratory Rate 16 06/01/25 19:42 Blood Pressure 141/80 H 06/01/25 19:42 Pulse Oximetry 98 06/01/25 19:42 Oxygen Delivery Room Air 06/01/25 19:42 Temperature 36.6 C 06/01/25 19:42 Pulse Rate 89 06/01/25 19:42 Respiratory Rate 16 06/01/25 19:42 Blood Pressure 141/80 H 06/01/25 19:42 Pulse Oximetry 98 06/01/25 19:42 Oxygen Delivery Room Air 06/01/25 19:42 Medical Decision Making Vital Signs Vital Signs: Vital Signs Temperature 36.6 C 06/01/25 19:42 Pulse Rate 89 06/01/25 19:42 Respiratory Rate 16 06/01/25 19:42 Blood Pressure 141/80 H 06/01/25 19:42 Pulse Oximetry 98 06/01/25 19:42 Oxygen Delivery Room Air 06/01/25 19:42 Temperature 36.6 C 06/01/25 19:42 Pulse Rate 89 06/01/25 19:42 Respiratory Rate 16 06/01/25 19:42 Blood Pressure 141/80 H 06/01/25 19:42 Pulse Oximetry 98 06/01/25 19:42 Oxygen Delivery Room Air 06/01/25 19:42 Discharge Plan Discharge Clinical Impression: Oral lesion Patient Disposition: Home Condition: Stable Instructions: Antibiotic Form, Gingivostomatitis (ED) Patient Language: Thai Prescriptions: No Action rosuvastatin [Crestor] 5 mg tablet 5 mg PO DAILY mometasone 0.1 % ointment 1 applic topical DAILY Qty: 45 1RF aspirin 81 mg Tablet,Chewable 81 mg PO DAILY Follow-up/Referrals: Hu Yo DO [Primary Care Provider] - Time of Disposition: 19:57
== END 2025-06-01 20:00 | disposition home or self-care (01) ==
PROVIDERS: Emergency Provider Nurse Practitioner; PCP Internal Medicine
DX: K13.70 Unspecified lesions of oral mucosa (principal); Z87.891 Personal history of nicotine dependence; E78.5 Hyperlipidemia, unspecified; E78.00 Pure hypercholesterolemia, unspecified; M06.9 Rheumatoid arthritis, unspecified; Z79.82 Long term (current) use of aspirin
CPT/HCPCS: 99211; G0463

== ENCOUNTER 2025-07-28 15:50 | Emergency (ER) | payer OTHER, SELFPAY ==
--- NOTE | ~2025-07-28 | CT_ITS ---
EXAMINATION: CT orbit BI wo con DATE: 07/28/2025 18:58 INDICATION: Right eyelid swelling. TECHNIQUE: Computed tomography (CT) of the orbits was performed without intravenous contrast. Automated exposure control and iterative reconstruction technique were employed. The dose-length product was 200.40 mGy-cm. COMPARISON: None FINDINGS: There is right periorbital soft tissue swelling. The orbits are normal. The extraocular muscles and optic nerves are normal. There is leftward deviation of the nasal septum. There is mucosal thickening in the paranasal sinuses. The mastoid air cells are normal. IMPRESSION: 1. Right periorbital soft tissue swelling. Normal orbits. Reviewed, dictated and finalized at location E.
--- OUTSIDE RECORDS SUMMARY | 2025-07-28 15:52 | XMS_ITS | Clinical Summary ---
Author Organization [facility] Address [address] [place] [address] Phone Care Team Providers Care Ore Feeder Name Role Phone Unavailable Primary Care Provider Unavailabl e Allergies No known active allergies Medications atorvastatin (LIPITOR) 40 mg tablet Take 1 Tablet (40 mg) by mouth late in the day. 90 Tablet 11/08/2016 Active Active Problems Problem Noted Date Diagnosed Date Fatty liver 11/15/2015 Overview (11/15/2015): Noted on Liver Ultrasound done 11/15/15. 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 Lives at a [facility] at [place], [place]. Immunizations Immunization Administration Dates Next Due Influenza Seasonal Unspecified Formulation IM ,08/16/2014 Social History Tobacco Use Types Packs/Day Years Used Date Smoking Tobacco: Former Cigarettes 1.5 10 1 - 07/28/2013 Smokeless Tobacco: Never Tobacco Cessation:Counseling Given: No Alcohol Use Standard Drinks/Week Comments No 0 (1 standard drink = 0.6 oz pure alcohol) hx of ETOHism. 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
--- OUTSIDE RECORDS SUMMARY | 2025-07-28 15:52 | XMS_ITS | Clinical Summary ---
Author Organization [facility] op5 Address [address] [place] [address] Care Team Providers Care Pumper Gauger Apprentice Name Role Phone Aislinn Kunz DO Primary Care Provider [phone] Alen Mathias DO Unavailable Source Comments [facility] op[facility],non-owned Affiliates and Associated Physician Practices is amultiple site organization consisting of ambulatory clinics and hospital sitesin [place], [place], [place] and [place]. This disclosure is being madepursuant to the Care Everywhere program and may not contain all information available regarding this patient. Last updated 18.[facility] op[facility] Allergies No known active allergies Medications * Be aware that medications may not be up to date on this document. Alwaysverify current medications with the patient. rosuvastatin (Crestor) 5 MG tablet TAKE 1 TABLET BY MOUTH EVERY DAY AT BEDTIME FOR ELEVATED CHOLESTEROL Active aspirin EC (Ecotrin) 81 MG tablet Take 1 (one) tablet by mouth once daily Active Active Problems Problem Noted Date Diagnosed Date Psoriasis of nail (pitting changes noted at fing er nails) 06/03/2024 Overview (06/03/2024): No finger inflammatory arthritis changes to suggest psoriatic arthritis. Long-term use of hydroxychloroquine 01/22/2023 Assessment & Plan (01/22/2023 2:21 PM CDT): I have reviewed the potential side effects associated with the use of hydroxychloroquine including but not limited to the occurrence of ocular toxicity (estimated at about 1 in 1,000 risk after 5 continuous years use when given at no greater than 5 mg/kg/day) and the need for an annual eye screening examinations for the safe long-term use of this medication. Brian Almeida has voiced good understanding of these risks, need for appropriate monitoring and is in agreement to continue use of this medication. Elevated alanine aminotransferase (ALT) level Overview (10/24/2022): Further elevation ALT up to 110 with prior h/o non alcoholic fatty liver disease and use of MTX. DC further use of MTX. Low-fat diet/weight loss encouraged. Ocular migraine 02/20/2019 Hyperlipidemia 12/03/2016 Fatty (change of) liver, not elsewhere classifie d 12/03/2016 Overview (01/27/2018): Overview: Noted on Liver Ultrasound done 11/15/15. Migraine with aura and witho ut status migrainosus, not intractable 12/03/2016 Obstructive sleep apnea 12/03/2016 Overview (05/26/2020): Sleep study done at [facility] on 03/11/14 Uses bipap Dyslipidemia 01/22/2014 Resolved Problems Problem Noted Date Diagnosed Date Resolved Date High risk medications (not a nticoagulants) long-term use 11/07/2021 01/22/2023 Assessment & Plan (11/07/2021 12:16 PM OWNER): No findings suggest developing side effects from the use of methotrexate. Continue current treatment plan and recommend routine repeated monitoring laboratory testing every 12 weeks for continued safe use of this medication. Continue daily supplementation with folic acid 1 mg to reduce potential for methotrexate toxicity effects. The patient has been counseled on risks and benefits of methotrexate use including but not limited to the risk of liver toxicity, bone marrow suppression and methotrexate induced lung injury. The patient was advised to discontinue methotrexate and called this clinic immediately if any sudden cough, fevers or dyspnea on exertion develops. CBC with differential, liver function enzymes and renal/kidney function status will be routinely checked every 8-12 weeks to screen the patient for possible developing methotrexate side effects. While receiving treatment with methotrexate the patient should avoid the use of sulfonamide containing antibiotics such as trimethoprim/sulfamethoxazole also known as Bactrim due to significant and potentially severe drug interaction related side effects. Additionally, alcohol should not be so while using methotrexate due to an increase risk for the possible future development of liver related side effects including liver injury such as cirrhosis. Rheumatoid arthritis involvi ng multiple sites with positive rheumatoid factor 06/27/2021 06/03/20 24 Assessment & Plan (11/07/2021 12:16 PM OWNER): Current examination seems to suggest sustained clinical remission on methotrexate 20 mg p.o. q.week. No indication for change in current treatment DMARD plan with methotrexate. Return appointment for routine six-month clinical reassessment to be scheduled or should return sooner if needed. Elevated sed rate 11/07/2021 Immunizations Immunization Administration Dates Next Due INFLUENZA VACCINE, TRIV. (AF LURIA, FLUZONE TRIVALENT; 6MO+) (IIV3) 08/02/2016 Covid dloHaiti primary monoval ent 12+ yr 0.3mL Purple cap 11/14/2020,10/27/2020 INFLUENZA VACCINE 09/13/2020, 8,06/28/2018,2014,08/16/2014 TDAP (7yrs+) 03/11/2018 Family History * Patient is adopted Relation Name Status Comments Father adopted Other Mother adopted Other Social History Tobacco Use Types Packs/Day Years Used Date Smoking Tobacco: Former Cigarettes 1.5 28 1 994 - 11/15/2021 Smokeless Tobacco: Former Quit: 11/15/2021 Tobacco Cessation:Counseling Given: Not Answered Comments:quit 02/19/13 and restart early 2019 1 ppd, 1.5-2 ppd chain smoker before 2012 Alcohol Use Standard Drinks/Week Comments Not Currently 0 (1 standard drink = 0.6 oz pure alcohol) recovering alcoholic [id number] Education Answer Date Recorded What is the highest level of school you have completed or the highest degree you have received? 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 Not on file Not on file Last Filed Vital Signs Vital Sign Reading Time Taken Comments Blood Pressure 110/78 06/03/2024 8:19 AM CDT Pulse 67 06/03/2024 8:19 AM CDT Temperature 36.7 C (98 F) 06/03/2024 8:19 AM CDT Respiratory Rate 16 06/03/2024 8:19 AM CDT Oxygen Saturation 96% 06/03/2024 8:19 AM CDT Inhaled Oxygen Concentration - - Weight 128.8 kg (284 lb) 06/03/2024 8:19 AM CDT Height 175.3 cm (5' 9) 06/03/2024 8:19 AM CDT Body Mass Index 41.94 06/03/2024 8:19 AM CDT Plan of Treatment Health Maintenance Due Date Last Done Comments HIV SCREENING 1998 HEPATITIS B VACCINE (1 of 3 - 19+ 3-dose series) 2002 HPV VACCINE (1 - 3-dose SCDM series) 2010 DEPRESSION SCREENING 10/28/2024 COVID-19 VACCINE (3 - 2024- season) 2025 11/14/2020, 10/27/2020 INFLUENZA VACCINE (#1) 2025 0, 08/01/2018, 06/28/2018, Additional history exists SCREENING FOR DIABETES 04/19/2026 3, 12/12/2021, 09/15/2021, Additional history exists DTAP/TDAP/TD VACCINES (2 - Td or Tdap) 03/11/2028 03/11/2018 ZOSTER VACCINE (1 of 2) 2033 HEPATITIS C SCREENING Completed 02/27/2019 HIB VACCINE Aged Out No longer eligi ble based on patient's age to complete this topic MENINGOCOCCAL (Group B) VACCINE SHARED DECISION-MAKING Aged Out No longer eligible based on patient's age to complete this topic MENINGOCOCCAL GROUPS A/C/Y/W VACCINE Aged Out No longer eligible based on patient's age to complete this topic PNEUMOCOCCAL VACCINE Aged Out No long er eligible based on patient's age to complete this topic Procedures Procedure Name Priority Date/Time Associated Diagnosis Comments COMPREHENSIVE METABOLIC PANEL Routine 04/19/2023 High risk medications (not anticoagulants) long-term use HEPATITIS B + C PANEL Routine 02/27/2019 9:48 AM CDT Rheumatoid arthritis, seropositive, multiple sites Abnormal LFTs from Last 3 Months or Most Recently Relevant to Health Maintenance Results * COMPREHENSIVE METABOLIC PANEL (04/19/2023) Blood BLOOD SPECIMEN / Unknown Alen Mathias DO LAB - CHEMISTRY ORDERABLES Final Result OTHER LAB * HEPATITIS B + C PANEL (02/27/2019 9:48 AM CDT) Hepatitis B Virus Surface Antigen Negative Negative [facility] INSURANCE BILL Hepatitis Be Antigen Negative Negative [facility] INSURANCE BILL Hepatitis B Core Virus Antibody IgM Negative Negative [facility] INSURANCE BILL Hepatitis B Core Virus Antibody Total Negative Negative [facility] INSURANCE BILL Hepatitis Be Antibody Negative Negative [facility] INSURANCE BILL Hepatitis B Virus Surface Antibody Reactive [facility] INSURANCE BILL Comment: Non Reactive: Inconsistent with immunity, less than 10 mIU/mL Reactive: Consistent with immunity, greater than 9.9 mIU/mL Hepatitis C Antibody <0.1 0.0 - 0.9 s/co ratio [facility] INSURANCE BILL Blood BLOOD SPECIMEN / Unknown 02/27/2019 9:48 AM CDT 02/27/2019 Narrative Resulting Agency Comment Lab Testing performed at: [facility] [address] [id number] Merrill Rojas MD LAB - SEROLOGY ORDERABLES Final Result [facility] INSURANCE BILL [address] [place] [address] from Last 3 Months or Most Recently Relevant to Health Maintenance Insurance [facility] Care Teams Pumper Gauger Apprentice Relationship Specialty Start Date End Date Aislinn Kunz DO [address] [address] PCP - General 06/28/22 Alen Mathias DO [facility] [place] [facility] [address] [place] [address] Seo Specialist Rheumatology 04/24/23
[2025-07-28 16:09] VITALS: BP 165/90; PULSE 77; RESP 16; TEMP 36.6; O2SAT 95
--- NOTE | 2025-07-28 18:41 | ED_ITS ---
HPI - Eye Problem General Chief complaint: Eye Problems Stated complaint: Right eye swelling after sneezing Time Seen by Provider: 07/28/25 17:34 Source: patient Mode of arrival: ambulatory Limitations: no limitations History of Present Illness HPI Narrative: This is a 40 year old male that presents to the ER for right eyelid swelling. Reports he sneezed several times in a row forcefully. He then noted as he was walking out to his car after that his right eye felt swollen. Reports mild pain in the eye, tearing. Denies vision changes, vomiting. He does not wear contacts or glasses. Related Data Home Medications ?Medication ?Instructions ?Recorded ?Confirmed ?Last Taken ?Type aspirin 81 mg chewable tablet 81 mg PO DAILY 11/19/23 09/14/24 11/21/23 History rosuvastatin 5 mg tablet (Crestor) 5 mg PO DAILY 08/2809/14/24 Unknown History Allergies Allergy/AdvReac Type Severity Reaction Status Date / Time No Known Allergies Allergy Verified 07/28/25 15:51 Review of Systems Review of Systems: All systems reviewed & are unremarkable except as noted in HPI and below PMFSH Past Medical History Medical History Internal derangement of left knee involving posterior horn of lateral meniscus Hyperlipidemia Rheumatoid arthritis Elevated cholesterol Sleep apnea Surgical History Surgical History No significant past surgical history Family History Family History Other No significant family history Social History Social History Social History: States that he has not smoked since May 2022. See HPI. Smoking packs per day: 1 Smoking cigarettes per day: 20.0 Years smoked: 6 Smoking pack-years: 6.00 Smoking status: Former smoker Tobacco type: cigarettes Smoking end date: 10/28/22 Alcohol intake: never Alcohol use details: Occasional Substance use: never Substance use type: does not use Do You Feel Safe in your Home?: Yes Lack of Transportation: No Lack of Food: Never True Current Housing: Decline to Answer Concerned About Future Housing: Decline to Answer Difficulty Paying Gas/Electric Bills: Decline to Answer Difficulty Paying for Meds: Decline to Answer Currently Unemployed: Decline to Answer Education: Associate Degree Difficulty w/ Childcare or Family Care: Decline to Answer Living arrangements: with family Additional living arrangements comments: On this visit 10/31/2021, lives with abigail?, expecting a baby. 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 HEAD: Normocephalic, atraumatic. EYES: PERRLA and EOMI. Right conjunctival injection. Right eye pressure 14, left eye pressure 16. Moderate right eyelid edema without overlying erythema. No fluorescent stain uptake ENT: Nares clear, no rhinorrhea or epistaxis. Mucous membranes moist. Oropharynx without tonsillar hypertrophy exudate or other lesions. CHEST: No respiratory distress. HEART: Regular rate EXTREMITIES: Normal range of motion. No edema. SKIN: Warm, dry, no rash. NEURO: No focal deficits. Alert and oriented x3. PSYCH: Normal mood and affect Course Consultations Consultation #1: Spoke with Dr. Thomas about patient and workup. Patient may follow up in clinic on Saturday at 1:00PM Date: 07/28/25 Vital Signs Vital signs: Vital Signs Temperature 98 F 07/28/25 16:09 Pulse Rate 77 07/28/25 16:09 Respiratory Rate 16 07/28/25 16:09 Blood Pressure 165/90 H 07/28/25 16:09 Pulse Oximetry 95 07/28/25 16:09 Oxygen Delivery Room Air 07/28/25 16:09 Temperature 98 F 07/28/25 16:09 Pulse Rate 77 07/28/25 16:09 Respiratory Rate 16 07/28/25 16:09 Blood Pressure 165/90 H 07/28/25 16:09 Pulse Oximetry 95 07/28/25 16:09 Oxygen Delivery Room Air 07/28/25 16:09 MDM - Eye Problem MDM Narrative Medical decision making narrative: Patient presents the emergency department for sudden-onset right eyelid swelling after sneezing several times. He is afebrile and nontoxic appearing. Denies any visual changes. Visual acuity is 20/20. Eye pressures are normal. CT of the orbit shows periorbital soft tissue swelling. Otherwise normal orbits. Spoke with Dr. Thomas about patient and workup. Patient may follow up in clinic on Saturday at 1:00PM. Will be started on antihistamines. He was given warnings to return to the ER Differential Diagnosis Differential diagnosis: Likely corneal abrasion, periorbital cellulitis, subconjunctival hemorrhage and other (allergic reaction, periorbital emphysema) Imaging Data Radiologist's impression: ITS Impressions Orbit CT 07/28/25 18:59 IMPRESSION: 1. Right periorbital soft tissue swelling. Normal orbits. Critical Care Time Critical Care Time Critical Care Time: No Discharge Plan Discharge Clinical Impression: Chemosis of right conjunctiva Edema eyelid Qualifiers: Laterality: right Eyelid: upper Qualified Code(s): H02.841 - Edema of right upper eyelid Patient Disposition: Home Condition: Stable Instructions: Eyelid Swelling (ED) Additional Instructions: Return to the emergency department if you experience fever, increasing swelling or pain, vision changes, or any other symptoms that are concerning to you Take a Zyrtec and use Pataday and Flonase daily. Follow up with Ophthalmology at [facility]. You have an appointment this Saturday (07/30) at 1:00PM[place] [address] Patient Language: Ukrainian Prescriptions: No Action rosuvastatin [Crestor] 5 mg tablet 5 mg PO DAILY mometasone 0.1 % ointment 1 applic topical DAILY Qty: 45 1RF aspirin 81 mg Tablet,Chewable 81 mg PO DAILY Follow-up/Referrals: Hu Yo DO [Primary Care Provider, Internal Medicine]
== END 2025-07-28 20:26 | disposition home or self-care (01) ==
PROVIDERS: Emergency Provider Physician Assistant; PCP Internal Medicine
DX: H11.421 Conjunctival edema, right eye (principal); H02.841 Edema of right upper eyelid; E78.00 Pure hypercholesterolemia, unspecified; M06.9 Rheumatoid arthritis, unspecified; G47.30 Sleep apnea, unspecified; Z87.891 Personal history of nicotine dependence; Z79.82 Long term (current) use of aspirin; Z79.899 Other long term (current) drug therapy
CPT/HCPCS: 70480; 99284; A9270

== ENCOUNTER 2025-09-17 14:25 | Outpatient (CLI) | payer OTHER, SELFPAY ==
--- OUTSIDE RECORDS SUMMARY | 2025-09-17 14:29 | XMS_ITS | Clinical Summary ---
Author Organization [facility] Address [address] [place] [address] Care Team Providers Care Station Air Traffic Control Specialist Name Role Phone Alen Mathias DO Unavailable Hu Yo DO Primary Care Provider [phone] Source Comments [facility],non-owned Affiliates and Associated Physician Practices is amultiple site organization consisting of ambulatory clinics and hospital sitesin [place], [place], [place] and [place]. This disclosure is being madepursuant to the Care Everywhere program and may not contain all information available regarding this patient. Last updated 18.[facility] Allergies No known active allergies Medications * [...] 12/03/2016 Overview (05/26/2020): Sleep study done at [facility] on 03/11/14 Uses bipap Dyslipidemia 01/22/2014 Resolved Problems Problem Noted Date Diagnosed Date Resolved Date High risk medications (not a nticoagulants) long-term use 11/07/2021 01/22/2023 Assessment & Plan (11/07/2021 12:16 PM CREW CAR DRIVER): No findings suggest developing side effects from [...] 24 Assessment & Plan (11/07/2021 12:16 PM CREW CAR DRIVER): Current examination seems to suggest sustained clinical remission on methotrexate 20 mg p.o. q.week. No indication for change in current treatment DMARD plan with methotrexate. Return appointment for routine six-month clinical reassessment to be scheduled or should return sooner if needed. Elevated sed rate 11/07/2021 Encounters Date Type Department Care Team Description 07/30/2025 1:00 PM CDT Office Visit [facility] - Ophthalmology [address] [place] [phone] Allergic reaction to chemical substance, accidental or unintentional, subsequent encounter (Primary Dx) 07/30/2025 Travel 07/28/2025 Telephone [facility] - Ophthalmology [address] [place] [phone] Maddy Thomas MD Eye Problem from Last 3 Months Immunizations Immunization Administration Dates Next Due INFLUENZA VACCINE, TRIV. (AF LURIA, FLUZONE TRIVALENT; 6MO+) (IIV3) 08/02/2016 Covid Pfizer primary monoval ent 12+ yr 0.3mL Purple [...] = 0.6 oz pure alcohol) recovering alcoholic [id number] Education Answer Date Recorded What is the highest level of school you have completed or the highest degree you have received? 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 Not on file Not [...] Resulting Agency Comment Lab Testing performed at: [facility] [id number] Merrill Rojas MD LAB - SEROLOGY ORDERABLES Final Result [facility] INSURANCE BILL [address] [place] [address] from Last 3 Months or Most Recently Relevant to Health Maintenance Insurance [facility] Care Teams Station Air Traffic Control Specialist Relationship Specialty Start Date End Date Hu Yo DO [address] [place] [address] PCP - General Internal Medicine 07/30/25 Alen Mathias DO [address] [facility] [address] [place] [address] Wireless Communications Engineer Rheumatology 04/24/23
--- OUTSIDE RECORDS SUMMARY | 2025-09-17 14:29 | XMS_ITS | Clinical Summary ---
Author Organization [facility] Address [address] [place] [address] Phone Care Team Providers Care Financial Compliance Officer Name Role Phone Unavailable Primary Care Provider Unavailabl e Allergies No known active allergies Medications atorvastatin (LIPITOR) 40 mg tablet Take 1 Tablet (40 mg) by mouth late in the day. 90 Tablet 11/08/2016 Active Active Problems Problem Noted Date Diagnosed Date Fatty liver 11/15/2015 Overview (11/15/2015): Noted on Liver Ultrasound done 11/15/15. 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 Lives at a alf at [place], [place]. 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 Gender Identity Not on file Sexual Orientation Not on file Occupation Industry Job Start Date Job End Date Not on file Not on file Not on file Not on file Last Filed Vital Signs Vital Sign Reading Time Taken Comments Blood Pressure 120/84 10/15/2016 8:45 AM GUEST SERVICE MANAGER Pulse 72 10/15/2016 8:45 AM GUEST SERVICE MANAGER Temperature 36.8 C (98.3 F) 05/15/2016 3:10 PM CDT Respiratory Rate 16 10/15/2016 8:45 AM GUEST SERVICE MANAGER Oxygen Saturation 98% 09/06/2014 3:08 PM GUEST SERVICE MANAGER Inhaled Oxygen Concentration - - Weight 105.1 kg (231 lb 9.6 oz) 10/15/2016 8:45 AM GUEST SERVICE MANAGER Height 175.3 cm (5' 9) 10/15/2016 8:45 AM GUEST SERVICE MANAGER Body Mass Index 34.2 10/15/2016 8:45 AM GUEST SERVICE MANAGER Plan of Treatment Health Maintenance Due Date Last Done Comments DTAP/TDAP/TD VACCINES (1 - Tdap) 2002 HEPATITIS B VACCINES (1 of 3 - 19+ 3-dose series) 2002 HPV VACCINES (1 - 3-dose SCDM series) 2010 INFLUENZA VACCINE (#1) 2025 08/02/2015, 2013 Insurance OPEN ACCESS HMO
[2025-09-17 15:35] LABS: Hematocrit 43.2 % (42.0-52.0); Hemoglobin 14.8 g/dL (14.0-18.0); Mean Corpuscular HGB Conc 34.3 g/dl (32-36); Mean Corpuscular Hemoglobin 30.1 pg (26-34); Mean Corpuscular Volume 88.0 fl (80-100); Platelet Count Result 211 k/mm3 (150-375); Red Blood Count 4.91 M/mm3 (4.6-6.20); White Blood Count 6.6 K/mm3 (4.5-10.0)
[2025-09-17 15:48] LABS: Alanine Aminotransferase 85 U/L (6-50); Albumin Level 4.5 g/dL (3.5-5.1); Alkaline Phosphatase 55 U/L (38-126); Anion Gap 10 mmol/L (4-12); Aspartate Amino Transferase 49 U/L (17-59); Bilirubin,Total 0.8 mg/dL (0.2-1.3); Blood Urea Nitrogen 10 mg/dL (9-20); Calcium 9.2 mg/dL (8.4-10.2); Carbon Dioxide 23 mmol/L (22-30); Chloride 105 mmol/L (98-107); Cholesterol 262 mg/dL (0-200); Estimated Glomerular Filt Rate > 60; Glucose 80 mg/dL (65-110); HDL Direct 40 mg/dL; Potassium 3.8 mmol/L (3.4-5.0); Sodium 138 mmol/L (137-145); Total Protein 7.9 g/dL (6.3-8.2); Triglycerides 256 mg/dL (<150)
[2025-09-17 16:00] LABS: Hemoglobin A1C 5.8 % (<5.7)
[2025-09-17 16:23] LABS: Thyroid Stimulating Hormone 1.040 uIU/mL (0.465-4.680)
== END 2025-09-17 14:26 | disposition home or self-care (01) ==
LOC: ANHLAB 14:26
PROVIDERS: PCP Internal Medicine; Visit Provider Nurse Practitioner
DX: Z00.00 Encounter for general adult medical examination without abnormal findings (principal); E03.9 Hypothyroidism, unspecified; E78.5 Hyperlipidemia, unspecified; E11.9 Type 2 diabetes mellitus without complications; M06.9 Rheumatoid arthritis, unspecified; R74.8 Abnormal levels of other serum enzymes
CPT/HCPCS: 36415; 80053; 80061; 83036; 84443; 85027